=== PATIENT | male | born 1950 | race Caucasian/White ===

== ENCOUNTER 2022-10-19 09:40 | Outpatient (CLI) | payer MEDICARE, SELFPAY ==
[2022-10-19 14:30] LABS: Hemoglobin A1C 5.8 % (<5.7)
== END 2022-10-19 09:41 | disposition home or self-care (01) ==
LOC: ANHGOSHLAB 09:42
PROVIDERS: PCP Internal Medicine; Visit Provider Internal Medicine
DX: R73.9 Hyperglycemia, unspecified (principal)
CPT/HCPCS: 36415; 83036

== ENCOUNTER 2023-12-06 08:38 | Outpatient (CLI) | payer MEDICARE, SELFPAY ==
[2023-12-06 12:27] LABS: Basophils Percent Auto 0.4 % (0.2-1.2); Eosinophils Absolute Auto 0.4 K/mm3 (0-0.3); Eosinophils Percent Auto 7.2 % (0-4.4); Hematocrit 45.3 % (42.0-52.0); Hemoglobin 15.1 g/dL (14.0-18.0); Immature Granulocyte Absolute 0.02 K/mm3 (0.00-0.031); Immature Granulocyte Percent A 0.4 % (0-0.5); Lymphocytes Absolute Auto 1.45 K/mm3 (0.9-3.2); Lymphocytes Percent Auto 28.8 % (18.3-44.2); Mean Corpuscular HGB Conc 33.3 g/dl (32-36); Mean Corpuscular Hemoglobin 31.6 pg (26-34); Mean Corpuscular Volume 94.8 fl (80-100); Mean Platelet Volume 10.2 fl (7.4-10.4); Monocytes Absolute Auto 0.7 K/mm3 (0.1-0.6); Monocytes Percent Auto 12.9 % (2.6-8.5); Neutrophils Absolute Auto 2.5 K/mm3 (1.3-6.7); Neutrophils Percent Auto 50.3 % (45.5-73.1); Platelet Count Result 262 k/mm3 (150-375); Red Blood Count 4.78 M/mm3 (4.6-6.20); Red Cell Distribution Width 14.6 % (11.5-14.5)
[2023-12-06 12:56] LABS: Alanine Aminotransferase 34 U/L (6-50); Albumin Level 4.1 g/dL (3.5-5.1); Alkaline Phosphatase 124 U/L (38-126); Anion Gap 6 mmol/L (4-12); Aspartate Amino Transferase 48 U/L (17-59); Bilirubin,Total 0.6 mg/dL (0.2-1.3); Blood Urea Nitrogen 15 mg/dL (9-20); Calcium 8.9 mg/dL (8.4-10.2); Carbon Dioxide 28 mmol/L (22-30); Chloride 104 mmol/L (98-107); Cholesterol 165 mg/dL (0-200); Estimated Glomerular Filt Rate > 60; Glucose 117 mg/dL (65-110); HDL Direct 39 mg/dL; Potassium 4.3 mmol/L (3.4-5.0); Sodium 138 mmol/L (137-145); Triglycerides 84 mg/dL (<150)
[2023-12-06 13:06] LABS: LDL Cholesterol Direct 107 mg/dL
[2023-12-06 13:39] LABS: Prostate Specific Antigen 1.8 ng/mL (< OR = 4.0)
[2023-12-06 15:22] LABS: Hemoglobin A1C 5.8 % (<5.7)
== END 2023-12-06 08:39 | disposition home or self-care (01) ==
PROVIDERS: PCP Nurse Practitioner; Visit Provider Nurse Practitioner
DX: Z12.5 Encounter for screening for malignant neoplasm of prostate (principal); R73.9 Hyperglycemia, unspecified; E66.9 Obesity, unspecified
CPT/HCPCS: 36415; 80053; 80061; 83036; 84153; 85025; G0103

== ENCOUNTER 2023-12-21 10:06 | Outpatient (CLI) | payer MEDICARE, SELFPAY ==
[2023-12-28 22:48] LABS: Apolipoprotein B 91 mg/dL
== END 2023-12-21 10:07 | disposition home or self-care (01) ==
LOC: ANHGOSHLAB 10:07
PROVIDERS: PCP Nurse Practitioner; Visit Provider Nurse Practitioner
DX: E78.5 Hyperlipidemia, unspecified (principal)
CPT/HCPCS: 36415; 82172

== ENCOUNTER 2024-08-15 09:17 | Outpatient (CLI) | payer MEDICARE, SELFPAY ==
--- OUTSIDE RECORDS SUMMARY | 2024-08-15 09:54 | XMS_ITS | Patient Health Summary ---
Author Organization [facility] [employer] Address [address] [place] [address] Care Team Providers Care Calibration Specialist Name Role Phone Unavailable Primary Care Provider Unavailabl e Note from [facility] [employer] [facility],non-owned Affiliates and Associated Physician Practices is amultiple site organization consisting of ambulatory clinics and hospital sitesin [place], [place], [place] and [place]. This disclosure is being madepursuant to the Care Everywhere program and may not contain all information available regarding this patient. Last updated 18.[facility] [employer] Allergies No known active allergies Medications Be aware that medications may not be up to date on this document. Always verify current medications with the patient. No known medications Immunizations * INFLUENZA VACCINE, HIGH-DOSE, QUADR. 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 GROSS DESCRIPTION: Received is one formalin filled container labeled with the patient's name and designated left cheek. The specimen consists of a shave biopsy measuring 7x4x1 mm. Jar 0. MICROSCOPIC DESCRIPTION: There is orthokeratosis. There is a slight increase in epidermal thickness with lentiginous buds of hyperpigmented keratinocytes. The number of melanocytes is only mildly increased. In the dermis, there is basophilic degeneration of elastic fibers. Final Diagnosis performed by Lisa Gutierrez M.D. Electronically signed 07/26/2012 1:32:35PM [facility] Comment: Performed at: Dermatopathology Laboratory [facility] - Department of Dermatology [address] [place] [address], [address] [place] [address] Phone number: [phone] Toll Free: [phone] FAX: [phone] 07/24/2012 07/25/2012 Historical Provider MD LAB - PATHOLOGY/C YTOLOGY ORDERABLES [facility] [address] [place] [address]. 5[address] [place] [address], [facility] [phone]
--- OUTSIDE RECORDS SUMMARY | 2024-08-15 09:54 | XMS_ITS | Referral Summary ---
Author Organization [facility] [employer] Address [address] [place] [address] Care Team Providers Care Flight Hostess Name Role Phone Unavailable Primary Care Provider Unavailabl e Source Comments [facility] [employer],non-owned Affiliates and Associated Physician Practices is amultiple site organization consisting of ambulatory clinics and hospital sitesin [place], [place], [place] and [place]. This disclosure is being madepursuant to the Care Everywhere program and may not contain all information available regarding this patient. Last updated 18.[facility] [employer] Allergies No known active allergies Medications Be aware that medications may not be up to date on this document. Always verify current medications with the patient. No known medications Immunizations Name Administration Dates Next Due INFLUENZA VACCINE, HIGH-DOSE , QUADR. (FLUZONE HIGH-DOSE QUADRIVALENT; 65Y+), 0.7 ML (HD-IIV4) 06/15/2017 Social History Tobacco Use Types Packs/Day Years Used Date Smoking Tobacco: Never Assessed Sex and Gender Information Value Date Recorded Sex Assigned at Not on file Gender Identity Not on file Sexual Orientation Not on file Plan of Treatment Not on file Insurance Payer Benefit Plan / Group Subscriber ID Effective Dates Phone Address Type MEDICARE MEDICARE PART A AND B [id number] 2016-Presen t [address] [place] [address] [facility] [id number] [facility]Presen [facility] [address] [place] [address] PPO MEDICARE [place] MED[place]ARE [id number] 2016-Presen t [address] [facility] [address] Medicare
--- OUTSIDE RECORDS SUMMARY | 2024-08-15 09:54 | XMS_ITS | Clinical Summary ---
Author Organization [facility] [employer] Address [address] [place] [address] Care Team Providers Care Cyber Defense Forensics Analyst Name Role Phone Unavailable Primary Care Provider Unavailabl e Source Comments [facility] [employer],non-owned Affiliates and Associated Physician Practices is amultiple site organization consisting of ambulatory clinics and hospital sitesin [place], [place], [place] and [place]. This disclosure is being madepursuant to the Care Everywhere program and may not contain all information available regarding this patient. Last updated 18.[facility] [employer] Allergies No known active allergies Medications Be [...] Orientation Not on file Plan of Treatment Health Maintenance Due Date Last Done Comments COLOGUARD (AGES 45-75) - COL ON CA SCREENING 1950 COLON MONITORING 1950 COLONOSCOPY - COLON CA SCREENING 1951 CT COLONOGRAPHY - COLON CA SCREENING 1950 Colorectal Cancer Screening 1950 FIT - COLON CA SCREENING 1950 FLEX SIG - COLON CA SCREENING 1950 LIPID TESTING 1950 MEDICARE AWV 12 MONTHS 1950 HEPATITIS C SCREENING 07/12/1969 DTAP/TDAP/TD VACCINES (1 - Tdap) 1970 PNEUMOCOCCAL VACCINE 50+ (1 of 1 - PCV) 2001 ZOSTER VACCINE (1 of 2) 2001 COVID-19 VACCINE (1 - 2023-2 5 season) 2024 INFLUENZA VACCINE (#1) 2024 06/15/2017 DEPRESSION SCREENING 06/13/2024 Respiratory Syncytial Virus (RSV) Vaccine Pt: or over 60 yrs (1 - 1-dose 75+ series) 2026 HEPATITIS B VACCINE Aged Out No longe r eligible based on patient's age to complete this topic HIB VACCINE Aged Out No longer eligi ble based on patient's age to complete this topic HPV VACCINE Aged Out No longer eligi ble based on patient's age to complete this topic MENINGOCOCCAL (Group B) VACCINE Aged Out No longer eligible based on patient's age to complete this topic MENINGOCOCCAL VACCINE Aged Out No phil ralph eligible based on patient's age to complete this topic
[2024-09-07 13:20] VITALS: BMI 33.3
--- NOTE | 2024-09-07 13:20 | P.SLEEP_ITS ---
Sleep Study Date of Study: 08/15/24 Ordering Provider: Andrei Angulo DO Interpreting Physician: Jacqueline Mauricio DO Sleep Study Type: Split Polysomnogram Height: 1.88 m Weight: 117.934 kg Body Mass Index: 33.3 Neck Circumference (inches): 17 [place]: 16 Reason for Sleep Study Daytime hypersomnia Sleep History The patient is a 74-year-old male that had a sleep study ordered by his primary care physician for evaluation of sleep apnea. The patient denies awakening from sleep short of breath. He frequently awakens at night with heartburn, belching, or cough. He frequently snores and it is frequently loud enough that others can blame. He rarely has trouble sleeping when he has a cold. He denies waking up gasping for air throughout the night. He occasionally has breathing problems at night observed by himself or others. He frequently sweats excessively at night. He denies having heart palpitations or irregular heartbeats during the night. He denies falling asleep during the day and while driving. He denies sleep paralysis, cataplexy, and hypnagogic/hypnopompic hallucinations. He denies having trouble at school or work due to sleepiness. He denies feeling afraid of going to sleep. He rarely has nightmares. He occasionally remembers his dreams. He frequently has thoughts racing through his mind. He denies feeling sad or depressed. He rarely has anxiety. He denies having muscular tension. He denies noticing parts of his body jerk. He denies kicking during the night. He denies having crawling and aching feelings in his legs and denies having leg pain during the night. He denies grinding his teeth during sleep and denies awakening with morning jaw pain. He denies being bothered by pain during the day and denies being awakened by pain during the night. He rarely wakes up feeling stiff in the morning. He denies waking up with sore or achy muscles. He denies waking up with pain in the neck, spine, and other joints. He goes to bed at 9:30 p.m. on weekdays and at 10:30 p.m. on the weekends. It takes him 5 minutes to fall asleep. He wakes up 3-4 times throughout the night for unknown reasons, and it takes him 1-2 hours to fall back asleep. He wakes up at 6:15 a.m. on both weekdays and weekends. He typically gets 7-8 hours of sleep per night. He will stay in bed for 15-20 minutes after waking up in the morning. He currently lives with his . He denies consuming any caffeinated beverages within 2 hours of bedtime. He denies engaging in physical exercise before bedtime. He denies reading and watching television before falling asleep. He denies taking naps in the afternoon or the evening. He consumes 2 caffeinated beverages per day. He will consume alcohol socially. He denies recreational drug use. [facility] Past Medical History Medical History Solitary lung nodule History of colon polyps Bilateral knee pain Obesity (BMI 30-39.9) Hyperglycemia Family History Family History Father Diabetes mellitus Mother Breast cancer Diabetes mellitus Hypertension Heart problem Sibling Breast cancer Social History Social History Smoking status: Former smoker Alcohol intake: current Substance use: never Do You Feel Safe in your Home?: Yes Lack of Transportation: No Lack of Food: Never True Current Housing: I Have Housing Concerned About Future Housing: No Difficulty Paying Gas/Electric Bills: No Difficulty Paying for Meds: No Currently Unemployed: No Education: Bachelor's Degree Difficulty w/ Childcare or Family Care: No Living arrangements: with family Occupation/Education: retired Agree to blood products: Yes Medications Home Medications ?Medication ?Instructions ?Recorded ?Confirmed ?Type triamcinolone acetonide 0.1 % 1 applic topical BID 11/23/23 07/03/24 History topical cream tadalafil 20 mg tablet 10 - 20 mg (0.5 - 1 x 20 mg) PO 02/20/24 07/03/24 Rx DAILY PRN sexual activity #30 tabs betamethasone dipropionate 0.05 % 1 applic topical DAILY PRN 07/03/24 07/03/24 History topical cream famotidine 20 mg tablet (Acid 20 mg PO DAILY 07/03/24 07/03/24 History Nutritional Services Cook (famotidine)) lansoprazole 15 mg capsule,delayed 15 mg PO DAILY 07/03/24 07/03/24 History release Sleep Procedure A full night split study using the [employer] multi-channel system recorded the standard physiologic parameters including EEG, EOG, submentalis EMG, anterior tibialis EMG, EKG, body position, nasal and oral airflow using nasal pressure sensor and thermistor.? Respiratory parameters of chest and abdominal movements were recorded with Respiratory Inductance Plethysmography belts. Oxygen saturation was recorded by pulse oximetry. Video monitoring was also performed. Sleep stages, periodic limb movements, and EEG arousals were scored in 30 second epochs according to the criteria of the AASM Scoring Manual. The Apnea-Hypopnea Index was calculated using [facility] guidelines for definition of hypopnea with 4% O2 desaturations while scoring respiratory events. Sleep Architecture During the diagnostic portion of the study, the total recording time was 194.7 minutes. The total sleep time was 133.5 minutes. Sleep latency was 6.7 minutes.? REM sleep was not achieved during this portion of the study. Sleep Efficiency was 68.6%. The patient had 18 awakenings for an awakening index of 8.1. Wake after sleep onset time was 54.5 minutes. The patient spent 18.0 minutes, 13.5% of total sleep time in Stage N1. The patient spent 115.5 minutes, 86.5% in Stage N2. The patient spent 0.0 minutes, 0.0% in Stage N3. The patient spent 0.0 minutes, 0.0% in Stage REM sleep. At 02:00:04 AM the patient was placed on PAP treatment and was titrated at pressures ranging from 5 cm H20 up to 13 cm H20. During the treatment portion of the study, the total recording time was 250.3 minutes.? The total sleep time was 135.5 minutes. Sleep latency was 8.0 minutes. REM latency was 40.5 minutes. Sleep Efficiency was 54.1%. Wake after Sleep Onset time was 106.5 minutes. The patient spent 28.0 minutes, 20.7% of total sleep time in Stage N1. The patient spent 71.0 minutes, 52.4% in Stage N2. The patient spent 0.0 minutes, 0.0% in Stage N3. The patient spent 36.5 minutes, 26.9% in Stage REM. Respiratory Analysis During the diagnostic portion of the study, the patient had 51 hypopneas and 1 obstructive apnea for an overall Apnea Hypopnea Index of 23.4 events per hour. The REM Apnea Hypopnea Index was 0. The NREM Apnea Hypopnea Index was 23.4. The patient had a Central Apnea Hypopnea Index of 0. There was no evidence of Prabhakar-Live Respirations. During the treatment portion of the study, the patient had 31 hypopneas, 17 obstructive apneas, 1 mixed apnea and 2 central apneas for an overall Apnea Hypopnea Index of 22.6 events per hour. The REM Apnea Hypopnea Index was 37.8. The NREM Apnea Hypopnea Index was 17.0. The patient had a Central Apnea Hypopnea Index of 0.9. There was no evidence of Prabhakar-Live Respirations. The patient was started on CPAP 5 cm H2O and titrated to CPAP 13 cm H2O due to obstructive apneas and hypopneas. The patient was able to fall asleep starting on CPAP 7 cm H2O. The patient was able to achieve REM sleep starting on CPAP 11 cm H2O. The lowest residual AHI the patient was able to achieve with both NREM and REM sleep in the supine position was 13.2 on the final pressure setting. On CPAP 13 cm H2O, the patient spent 62.5 minutes in NREM and 28.5 minutes in REM with 6 obstructive apneas, 2 central apneas, 1 mixed apnea and 11 hypopneas, resulting in an AHI of 13.2. The patient had a sleep efficiency of 47.5% on this pressure setting. While the final pressure setting improved his sleep apnea the most, he had a very poor sleep efficiency. Arousals During the diagnostic portion of the study, there were a total of 61 arousals f or an arousal index of 27.4.? There were 17 respiratory arousals for an index of 7.6. There were 2 periodic limb movement arousals for an index of 0.9.? There were 18 isolated limb movement arousals for an index of 8.1. There were 25 spontaneous arousals for an index of 11.2. During the treatment portion of the study, there were a total of 62 arousals for an index of 27.5.? There were 18 respiratory arousals for an index of 8.0. There were 0 periodic limb movement arousals for an index of 0.? There were 16 isolated limb movement arousals for an index of 7.1. There were 31 spontaneous arousals for an index of 13.7. Periodic Limb Movements During the diagnostic portion of the study, the patient had 27 isolated limb movements with an index of 12.1. The patient had 4 periodic limb movements with an index of 1.8. The patient had a total of 31 limb movements with a total limb movement index of 13.9. During the treatment portion of the study, the patient had 26 isolated limb movements with an index of 11.5. The patient had 0 periodic limb movements with an index of 0. The patient had a total of 26 limb movements with a total limb movement index of 11.5. Oximetry Data During the diagnostic portion of the study, the patient had an average oxygen saturation of 95.3% in wake with a minimum oxygen saturation of 84% and a maximum oxygen saturation of 100%. The patient had an average oxygen saturation of 94.2% in sleep with a minimum oxygen saturation of 83.0% and a maximum oxygen saturation of 98.0%. The patient had 87 oxygen desaturations resulting in an Oxygen Desaturation Index of 39.1. The patient spent 0.8 minutes, 0.4% of total sleep time with an oxygen saturation less than 88%. During the treatment portion of the study, the patient had an average oxygen saturation of 95.6% in wake with a minimum oxygen saturation of 76.0% and a maximum oxygen saturation of 99.0%. The patient had an average oxygen saturation of 94.4% in sleep with a minimum oxygen saturation of 78.0% and a maximum oxygen saturation of 98.0%. The patient had 62 oxygen desaturations resulting in an Oxy gen Desaturation Index of 27.5. The patient spent 7.8 minutes, 3.3% of total sleep time with an oxygen saturation less than 88%. Snoring Profile Moderate to loud snoring was present in the beginning of the study. The snoring resolved once the pressure was titrated to 13 cm H2O. Cardiac Profile The EKG lead showed normal sinus rhythm with rare PVCs. During the diagnostic portion of the study, the average pulse rate was 58.1 bpm.? The minimum pulse rate was 48.0 bpm. The maximum pulse rate was 79.0 bpm. During the treatment portion of the study, the average pulse rate was 54.2 bpm.? The minimum pulse rate was 46.0 bpm. The maximum pulse rate was 78.0 bpm. EEG Profile No signs of seizure activity seen. Assessment and Plan Assessment and Plan (1) DELICIA (obstructive sleep apnea): Code(s): G47.33 - Obstructive sleep apnea (adult) (pediatric) Status: Acute Assessment and Plan: In the baseline portion of the study, the patient had an overall AHI of 23.4 with desaturation down to 83%. This is consistent with moderate sleep apnea. The patient was started on CPAP 5 cm H2O and titrated to CPAP 13 cm H2O due to obstructive apneas and hypopneas. The patient's residual AHI on the final pressure setting was 13.2 with a poor sleep efficiency. I recommend that the patient have a whole night CPAP Titration study starting at a pressure of 10 cm H2O. I also recommend that the patient have a sleep aide available on the night of the sleep study due to poor sleep efficiency on this sleep study (Lunesta 2-3 mg or Ambien 10 mg). Data The data obtained during this sleep study is adequate for interpretation. Certification This sleep study has been reviewed by a board certified sleep medicine physician.
== END 2024-08-16 06:31 | disposition home or self-care (01) ==
LOC: ANHCSM 09:17
PROVIDERS: PCP Internal Medicine; Visit Provider Internal Medicine
DX: G47.30 Sleep apnea, unspecified (principal); G47.19 Other hypersomnia; G47.33 Obstructive sleep apnea (adult) (pediatric)
CPT/HCPCS: 95811

== ENCOUNTER 2024-12-27 11:43 | Outpatient (CLI) | payer MEDICARE, SELFPAY ==
--- OUTSIDE RECORDS SUMMARY | 2024-12-27 11:46 | XMS_ITS | Clinical Summary ---
Author Organization [facility] [email or web address] Address [address] [place] [address] Care Team Providers Care Cotton Weigher Operator Name Role Phone Unavailable Primary Care Provider Unavailabl e Source Comments [facility] [email or web address],non-owned Affiliates and Associated Physician Practices is amultiple site organization consisting of ambulatory clinics and hospital sitesin [place], [place], [place] and [place]. This disclosure is being madepursuant to the Care Everywhere program and may not contain all information available regarding this patient. Last updated 18.[facility] [email or web address] Allergies No known active allergies Medications * Be aware that medications may not be up to date on this document. Alwaysverify current medications with the patient. No known medications Immunizations Immunization Administration Dates Next Due INFLUENZA VACCINE, HIGH-DOSE , QUADR. 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 Gender Identity Not on file Sexual Orientation [...] COLON CA SCREENING 1950 LIPID TESTING 1950 HEPATITIS C SCREENING 07/12/1969 DTAP/TDAP/TD VACCINES (1 - Tdap) 1970 PNEUMOCOCCAL VACCINE 50+ (1 of 1 - PCV) 2001 ZOSTER VACCINE (1 of 2) 2001 COVID-19 VACCINE (1 - 2023-2 5 season) 2024 DEPRESSION SCREENING 06/13/2024 INFLUENZA VACCINE (#1) 2025 06/15/2017 Respiratory Syncytial Virus (RSV) Vaccine Pt: or [...] to complete this topic MENINGOCOCCAL (Group B) VACC INE SHARED DECISION-MAKING Aged Out No longer eligibl e based on patient's age to complete this topic MENINGOCOCCAL GROUPS A/C/Y/W VACCINE Aged Out No longer eligible b ased on patient's age to complete this topic Insurance MEDICARE [facility] MEDICARE
[2024-12-27 18:39] LABS: Hematocrit 44.9 % (42.0-52.0); Hemoglobin 14.9 g/dL (14.0-18.0); Immature Granulocyte Percent A 0.2 % (0-0.5); Lymphocytes Absolute Auto 1.77 K/mm3 (0.9-3.2); Mean Corpuscular HGB Conc 33.2 g/dl (32-36); Mean Corpuscular Hemoglobin 32.2 pg (26-34); Mean Corpuscular Volume 97.0 fl (80-100); Nucleated Red Blood Cells Absolute Auto 0.000 K/mm3 (0.0-0.012); Nucleated Red Blood Cells Perc 0.0 % (0.0-0.2); Platelet Count Result 264 k/mm3 (150-375); Red Blood Count 4.63 M/mm3 (4.6-6.20); White Blood Count 5.5 K/mm3 (4.5-10.0)
[2024-12-27 19:12] LABS: Alanine Aminotransferase 59 U/L (6-50); Albumin Level 4.1 g/dL (3.5-5.1); Alkaline Phosphatase 176 U/L (38-126); Anion Gap 9 mmol/L (4-12); Aspartate Amino Transferase 60 U/L (17-59); Bilirubin,Total 0.5 mg/dL (0.2-1.3); Blood Urea Nitrogen 14 mg/dL (9-20); Calcium 9.7 mg/dL (8.4-10.2); Carbon Dioxide 27 mmol/L (22-30); Chloride 102 mmol/L (98-107); Cholesterol 160 mg/dL (0-200); Estimated Glomerular Filt Rate > 60; Glucose 88 mg/dL (65-110); HDL Direct 40 mg/dL; Potassium 4.4 mmol/L (3.4-5.0); Sodium 138 mmol/L (137-145); Total Protein 7.5 g/dL (6.3-8.2); Triglycerides 75 mg/dL (<150)
[2024-12-27 19:48] LABS: Prostate Specific Antigen 1.7 ng/mL (< OR = 4.0)
== END 2024-12-27 11:44 | disposition home or self-care (01) ==
PROVIDERS: PCP Nurse Practitioner; Visit Provider Nurse Practitioner
DX: E78.5 Hyperlipidemia, unspecified (principal); Z12.5 Encounter for screening for malignant neoplasm of prostate
CPT/HCPCS: 36415; 80053; 80061; 84153; 85025; G0103

== ENCOUNTER 2025-01-01 11:22 | Outpatient (CLI) | payer MEDICARE, SELFPAY ==
--- OUTSIDE RECORDS SUMMARY | 2025-01-01 11:27 | XMS_ITS | Clinical Summary ---
Author Organization [facility] [employer] Address [address] [place] [address] Care Team Providers Care Investigation Division Lieutenant Name Role Phone Unavailable Primary Care Provider Unavailabl e Source Comments [facility] [employer],non-owned Affiliates and Associated Physician Practices is amultiple site organization consisting of ambulatory clinics and hospital sitesin [place], [place], [place] and [place]. This disclosure is being madepursuant to the Care Everywhere program and may not contain all information available regarding this patient. 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
[2025-01-01 19:24] LABS: Alanine Aminotransferase 75 U/L (6-50); Albumin Level 4.1 g/dL (3.5-5.1); Alkaline Phosphatase 196 U/L (38-126); Aspartate Amino Transferase 100 U/L (17-59); Bilirubin,Total 0.4 mg/dL (0.2-1.3); Total Protein 7.3 g/dL (6.3-8.2)
== END 2025-01-01 11:23 | disposition home or self-care (01) ==
LOC: ANHGOSHLAB 11:23
PROVIDERS: PCP Nurse Practitioner; Visit Provider Nurse Practitioner
DX: R74.8 Abnormal levels of other serum enzymes (principal)
CPT/HCPCS: 36415; 80076

== ENCOUNTER 2025-01-24 12:46 | Outpatient (CLI) | payer MEDICARE, SELFPAY ==
--- NOTE | ~2025-01-24 | US_ITS ---
US right upper quadrant INDICATION: Elevated liver enzymes PROCEDURE: Realtime right upper abdominal ultrasound. COMPARISON: No prior studies for comparison. FINDINGS: The pancreas is normal without focal mass or pancreatic ductal dilation. Liver echotexture is normal without focal mass or intrahepatic biliary dilatation. There is normal directional flow i n the portal vein. The gallbladder is normal without stones, gallbladder wall thickening or pericholecystic fluid. Comm on bile duct measures 4 mm. No sonographic Luna's sign. IMPRESSION: 1: Normal limited abdominal ultrasound. Reviewed, dictated and finalized at location A.
== END 2025-01-24 12:47 | disposition home or self-care (01) ==
LOC: MICIMG 12:48
PROVIDERS: PCP Nurse Practitioner; Visit Provider Nurse Practitioner
DX: R74.8 Abnormal levels of other serum enzymes (principal)
CPT/HCPCS: 76705

== ENCOUNTER 2025-01-29 07:51 | Outpatient (CLI) | payer MEDICARE, SELFPAY ==
--- OUTSIDE RECORDS SUMMARY | 2025-01-29 08:04 | XMS_ITS | Clinical Summary ---
Author Organization [facility] [employer] Address [address] [address] Care Team Providers Care Service Bar Cashier Name Role Phone Unavailable Primary Care Provider Unavailabl e Source Comments [facility] [employer],non-owned Affiliates and Associated Physician Practices is amultiple site organization consisting of ambulatory clinics and hospital sitesin [place], [place], [place] and [place]. This disclosure is being madepursuant to the Care Everywhere program and may not contain all information available regarding this patient. 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
[2025-01-29 16:57] LABS: Ferritin 115.00 ng/mL (11.1-264)
[2025-01-29 17:37] LABS: Iron 114 ug/dL (49-181)
[2025-01-29 17:41] LABS: Alanine Aminotransferase 58 U/L (6-50); Albumin Level 3.9 g/dL (3.5-5.1); Alkaline Phosphatase 202 U/L (38-126); Aspartate Amino Transferase 69 U/L (17-59); Bilirubin,Total 0.6 mg/dL (0.2-1.3); Total Protein 7.0 g/dL (6.3-8.2)
[2025-01-29 17:53] LABS: Percent Iron Saturation 40 % (20-50)
[2025-01-29 18:18] LABS: Thyroid Stimulating Hormone 2.690 uIU/mL (0.465-4.680)
[2025-01-29 21:38] LABS: Hepatitis B Surface Antigen Negative (Negative)
[2025-01-30 02:21] LABS: HIV 1/2 Ab P24 Ag Result Negative (Negative)
[2025-01-30 07:09] LABS: GGT 391 IU/L (0-65)
[2025-01-31 05:08] LABS: Deamidated Gliadin Abs, IgA 6 units (0-19); Deamidated Gliadin Abs, IgG 5 units (0-19); Immunoglobulin A, Qn 432 mg/dL (61-437)
== END 2025-01-29 07:52 | disposition home or self-care (01) ==
LOC: ANHGOSHLAB 07:53
PROVIDERS: Internal Medicine; PCP Nurse Practitioner; Visit Provider Nurse Practitioner
DX: R74.8 Abnormal levels of other serum enzymes (principal)
CPT/HCPCS: 36415; 80076; 82728; 82784; 82977; 83540; 83550; 84443; 86231; 86258; 86703; 86803; 87340; G0432

== ENCOUNTER 2025-02-01 10:51 | Outpatient (CLI) | payer MEDICARE, SELFPAY ==
--- NOTE | ~2025-02-01 | CT_ITS ---
CT Scan of the Chest without Contrast: Clinical Indication: Lung cancer screening, nicotine dependence Technique: Contiguous sections were acquired throughout the chest without intravenous contrast. Dose reduction technique was used on this scan by utilizing automated exposure control and iterative reconstruction technique. The dose-length product (DLP) was 146.32 mGy-cm. Findings: There is no evidence of any significant mediastinal, hilar or axillary lymphadenopathy. The mediastinal soft tissues appear normal. There is no evidence of pleural or pericardial effusion. Calcified left upper lobe granuloma present anteriorly. No other pulmonary nodule seen. Images through the upper abdomen reveal no abnormalities. Impression: Lung RADS 2: Benign appearance. 12 month follow-up screening CT advised. Reviewed, dictated and finalized at location . Impression: Lung RADS 2: Benign appearance. 12 month follow-up screening CT advised.
== END 2025-02-01 10:52 | disposition home or self-care (01) ==
LOC: MICIMG 10:53
PROVIDERS: PCP Nurse Practitioner; Visit Provider Nurse Practitioner
DX: Z12.2 Encounter for screening for malignant neoplasm of respiratory organs (principal); Z87.891 Personal history of nicotine dependence
CPT/HCPCS: 71271

== ENCOUNTER 2025-02-22 08:29 | Outpatient (CLI) | payer MEDICARE, SELFPAY ==
--- OUTSIDE RECORDS SUMMARY | 2025-02-22 08:39 | XMS_ITS | Clinical Summary ---
Author Organization [facility] Address [address] [place] [address] Care Team Providers Care Force Adjustment Supervisor Name Role Phone Unavailable Primary Care Provider Unavailabl e Source Comments [facility]non-owned Affiliates and Associated Physician Practices is amultiple site organization consisting of ambulatory clinics and hospital sitesin [place], [place] and [place]. This disclosure is being madepursuant to the Care Everywhere program and may not contain all information available regarding this patient. 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
[2025-02-22 19:12] LABS: Alanine Aminotransferase 80 U/L (6-50); Albumin Level 3.9 g/dL (3.5-5.1); Alkaline Phosphatase 265 U/L (38-126); Aspartate Amino Transferase 93 U/L (17-59); Bilirubin,Total 0.5 mg/dL (0.2-1.3); Total Protein 7.0 g/dL (6.3-8.2)
[2025-02-22 19:25] LABS: Immunoglobulin G 1084 mg/dL (700-1600); Immunoglobulin M 97 mg/dL (40-230)
[2025-02-27 13:08] LABS: ANA by IFA Rfx Titer/Pattern Negative (.)
== END 2025-02-22 08:30 | disposition home or self-care (01) ==
PROVIDERS: PCP Nurse Practitioner; Visit Provider Nurse Practitioner Family
DX: R74.8 Abnormal levels of other serum enzymes (principal)
CPT/HCPCS: 36415; 80076; 82390; 82784; 86015; 86038; 86376; 86381

== ENCOUNTER 2025-04-30 08:21 | Outpatient (CLI) | payer MEDICARE, SELFPAY ==
[2025-04-30 13:03] LABS: Hematocrit 44.9 % (42.0-52.0); Hemoglobin 14.7 g/dL (14.0-18.0); Mean Corpuscular HGB Conc 32.7 g/dl (32-36); Mean Corpuscular Hemoglobin 32.5 pg (26-34); Mean Corpuscular Volume 99.3 fl (80-100); Platelet Count Result 252 k/mm3 (150-375); Red Blood Count 4.52 M/mm3 (4.6-6.20); White Blood Count 4.7 K/mm3 (4.5-10.0)
[2025-04-30 13:22] LABS: Alanine Aminotransferase 18 U/L (6-50); Albumin Level 4.1 g/dL (3.5-5.1); Alkaline Phosphatase 132 U/L (38-126); Anion Gap 6 mmol/L (4-12); Aspartate Amino Transferase 36 U/L (17-59); Bilirubin,Total 0.5 mg/dL (0.2-1.3); Blood Urea Nitrogen 18 mg/dL (9-20); Calcium 9.0 mg/dL (8.4-10.2); Carbon Dioxide 28 mmol/L (22-30); Chloride 103 mmol/L (98-107); Estimated Glomerular Filt Rate > 60; Glucose 85 mg/dL (65-110); Potassium 4.4 mmol/L (3.4-5.0); Sodium 137 mmol/L (137-145); Total Protein 7.3 g/dL (6.3-8.2)
[2025-04-30 19:01] LABS: INR 1.0; Prothrombin Time 13.3 Seconds (11.1-14.7)
== END 2025-04-30 08:22 | disposition home or self-care (01) ==
PROVIDERS: PCP Nurse Practitioner; Visit Provider Nurse Practitioner Family
DX: K74.3 Primary biliary cirrhosis (principal); R74.8 Abnormal levels of other serum enzymes
CPT/HCPCS: 36415; 80053; 82103; 82105; 85027; 85610

== ENCOUNTER 2025-05-27 08:46 | Outpatient (CLI) | payer MEDICARE, SELFPAY ==
[2025-05-27 11:22] LABS: Hematocrit 44.8 % (42.0-52.0); Hemoglobin 15.0 g/dL (14.0-18.0); Mean Corpuscular HGB Conc 33.5 g/dl (32-36); Mean Corpuscular Hemoglobin 32.3 pg (26-34); Mean Corpuscular Volume 96.6 fl (80-100); Platelet Count Result 255 k/mm3 (150-375); Red Blood Count 4.64 M/mm3 (4.6-6.20); White Blood Count 5.1 K/mm3 (4.5-10.0)
[2025-05-27 11:25] LABS: Alanine Aminotransferase 16 U/L (6-50); Albumin Level 4.1 g/dL (3.5-5.1); Alkaline Phosphatase 103 U/L (38-126); Anion Gap 2 mmol/L (4-12); Aspartate Amino Transferase 45 U/L (17-59); Bilirubin,Total 0.6 mg/dL (0.2-1.3); Blood Urea Nitrogen 17 mg/dL (9-20); Calcium 9.4 mg/dL (8.4-10.2); Carbon Dioxide 30 mmol/L (22-30); Chloride 106 mmol/L (98-107); Estimated Glomerular Filt Rate > 60; Glucose 95 mg/dL (65-110); Potassium 4.5 mmol/L (3.4-5.0); Sodium 138 mmol/L (137-145); Total Protein 7.4 g/dL (6.3-8.2)
== END 2025-05-27 08:47 | disposition home or self-care (01) ==
LOC: ANHGOSHLAB 08:47
PROVIDERS: PCP Nurse Practitioner; Visit Provider Nurse Practitioner Family
DX: K74.3 Primary biliary cirrhosis (principal); R74.8 Abnormal levels of other serum enzymes
CPT/HCPCS: 36415; 80053; 85027